=== PATIENT | male | born 1945 | race Caucasian/White ===

== ENCOUNTER 2025-07-30 18:24 | Emergency (ER) | payer OTHER, SELFPAY ==
[2025-07-30] VITALS (14 sets, daily range): BP systolic 161–192; BP diastolic 80–96; PULSE 73–91; RESP 13–23; TEMP 36.8; O2SAT 93–99
--- NOTE | 2025-07-30 18:33 | ED.GENADULT ---
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 He and his friend were out to dinner patient felt that he was having more difficulty finding words, he apparently had some mild seizure-like activity passed out unclear if this was truly a seizure or a syncopal episode. Bystander CPR was started and stopped as soon as medics arrived and clearly found a pulse. As he fell he hit the left side of his face on the edge of the table has some contusions and bleeding to the surgically abnormal left ear skin abrasion to the left cheek. Left facial droop. He is more alert has little recollection of events and the friend who was having dinner with him notes that he seems like he is back to his baseline. At this time patient complains only of some mild central chest pain that is reproducible with palpation is likely secondary to the bystander CPR that was done. He is on his way to drive back home to [place]. Related Data Allergies Allergy/AdvReac Type Severity Reaction Status Date / Time Penicillins Allergy Unknown unknown Verified 07/31/25 05:16 Patient History <Colleen Richards MD - Last Filed: 08/02/25 23:05> Medical History (Updated 07/31/25 @ 08:19 by Em Patel DO) Primary parotid gland malignancy Exam <Colleen Richards MD - Last Filed: 08/02/25 23:05> Initial Vital Signs Initial Vital Signs: Vital Signs Pulse Rate 88 07/30/25 18:29 Respiratory Rate 20 07/30/25 18:29 General: Chronically ill-appearing with significant facial deformity from previous cancer surgeries, slightly postictal maintaining airway HEENT: Left facial droop, difficulty closing his left eye, skin tear over the left cheek, surgical and radiation changes left side of the jaw neck, significantly reconstructed left your with contusion and minor skin tears without overt laceration. He has an approximately 0.5 cm almost a puncture wound to the back of his head bleeding is controlled suturing is not indicated at this time Neck: No tenderness to palpation midline Respiratory: Lungs are clear to auscultation, no wheezing no rales no rhonchi. Full and symmetrical air movement Cardiac: Regular rate and rhythm no murmurs no bruits Chest: No bruises from his bystander CPR but tender along the manubrium, no rib pain Abdomen: Soft, nontender, no abrasions or contusions no rebound or guarding, no flank pain Skin: A thin is quite skin, baseline bruising, skin tear to the left cheek Neurologic: He is moving all extremities, initially had some mild dysarthria, unclear how much of the left facial abnormalities or new. Extremities: No significant trauma. No lower extremity edema Psych: Cognitively clearing and when re-examined is appropriate and interactive with fluent speech <Óscar Marcum MD - Last Filed: 07/31/25 14:36> Initial Vital Signs Initial Vital Signs: Vital Signs Pulse Rate 88 07/30/25 18:29 Respiratory Rate 20 07/30/25 18:29 <Em Patel DO - Last Filed: 07/31/25 11:19> Initial Vital Signs Initial Vital Signs: Vital Signs Pulse Rate 88 07/30/25 18:29 Respiratory Rate 20 07/30/25 18:29 Course <Colleen Richards MD - Last Filed: 08/02/25 23:05> Orders Ordered: Discontinued Medications Hydrocodone Bitart/Acetaminophen (Hydrocodone/Acet 5/325 Tablet) 1 tab PO NOW ONE Stop: 07/31/25 03:52 Last Admin: 07/31/25 04:09 Dose: 1 tab Documented By: Levetiracetam 1,500 mg/ Sodium (Chloride) 115 mls @ 460 mls/hr IV NOW ONE Stop: 07/30/25 23:25 Last Infusion: 07/31/25 00:13 Dose: Infused Documented By: Admin: 07/30/25 23:43 Dose: 460 mls/hr Documented By: ANIKET Sodium Chloride (Normal Saline 0.9%) 1,000 mls @ 500 mls/hr IV BOLUS ONE Stop: 07/31/25 08:07 Last Infusion: 07/31/25 09:06 Dose: Infused Documented By: Admin: 07/31/25 06:51 Dose: 500 mls/hr Documented By: Morphine Sulfate (Morphine 4 Mg/Ml Inj) 4 mg IV NOW ONE Stop: 07/31/25 06:53 Last Admin: 07/31/25 06:56 Dose: 4 mg Documented By: Vital Signs Vital signs: Vital Signs - 8 hr 07/31/25 06:45 07/31/25 07:00 07/31/25 07:21 Temperature Pulse Rate 73 70 Respiratory Rate 25 H 18 Blood Pressure 153/69 H Pulse Oximetry 100 99 Oxygen Delivery Method Room Air 07/31/25 07:21 07/31/25 07:30 07/31/25 08:00 Temperature Pulse Rate 66 66 Respiratory Rate 10 L 10 L Blood Pressure 145/69 H Pulse Oximetry 98 98 Oxygen Delivery Method 07/31/25 08:00 07/31/25 08:30 07/31/25 09:00 Temperature Pulse Rate 62 59 L 68 Respiratory Rate 10 L 12 19 Blood Pressure Pulse Oximetry 99 99 98 Oxygen Delivery Method 07/31/25 09:01 07/31/25 09:01 07/31/25 10:33 Temperature 98.6 F Pulse Rate 69 66 Respiratory Rate 19 19 Blood Pressure 189/93 H 145/78 H Pulse Oximetry 97 98 Oxygen Delivery Method Room Air <Óscar Marcum MD - Last Filed: 07/31/25 14:36> Orders Ordered: Discontinued Medications Hydrocodone Bitart/Acetaminophen (Hydrocodone/Acet 5/325 Tablet) 1 tab PO NOW ONE Stop: 07/31/25 03:52 Last Admin: 07/31/25 04:09 Dose: 1 tab Documented By: Levetiracetam 1,500 mg/ Sodium (Chloride) 115 mls @ 460 mls/hr IV NOW ONE Stop: 07/30/25 23:25 Last Infusion: 07/31/25 00:13 Dose: Infused Documented By: Admin: 07/30/25 23:43 Dose: 460 mls/hr Documented By: ANIKET Sodium Chloride (Normal Saline 0.9%) 1,000 mls @ 500 mls/hr IV BOLUS ONE Stop: 07/31/25 08:07 Last Infusion: 07/31/25 09:06 Dose: Infused Documented By: Admin: 07/31/25 06:51 Dose: 500 mls/hr Documented By: Morphine Sulfate (Morphine 4 Mg/Ml Inj) 4 mg IV NOW ONE Stop: 07/31/25 06:53 Last Admin: 07/31/25 06:56 Dose: 4 mg Documented By: Vital Signs Vital signs: Vital Signs - 8 hr 07/31/25 06:45 07/31/25 07:00 07/31/25 07:21 Temperature Pulse Rate 73 70 Respiratory Rate 25 H 18 Blood Pressure 153/69 H Pulse Oximetry 100 99 Oxygen Delivery Method Room Air 07/31/25 07:21 07/31/25 07:30 07/31/25 08:00 Temperature Pulse Rate 66 66 Respiratory Rate 10 L 10 L Blood Pressure 145/69 H Pulse Oximetry 98 98 Oxygen Delivery Method 07/31/25 08:00 07/31/25 08:30 07/31/25 09:00 Temperature Pulse Rate 62 59 L 68 Respiratory Rate 10 L 12 19 Blood Pressure Pulse Oximetry 99 99 98 Oxygen Delivery Method 07/31/25 09:01 07/31/25 09:01 07/31/25 10:33 Temperature 98.6 F Pulse Rate 69 66 Respiratory Rate 19 19 Blood Pressure 189/93 H 145/78 H Pulse Oximetry 97 98 Oxygen Delivery Method Room Air <Em Patel, - Last Filed: 07/31/25 11:19> Orders Ordered: Discontinued Medications Hydrocodone Bitart/Acetaminophen (Hydrocodone/Acet 5/325 Tablet) 1 tab PO NOW ONE Stop: 07/31/25 03:52 Last Admin: 07/31/25 04:09 Dose: 1 tab Documented By: Levetiracetam 1,500 mg/ Sodium (Chloride) 115 mls @ 460 mls/hr IV NOW ONE Stop: 07/30/25 23:25 Last Infusion: 07/31/25 00:13 Dose: Infused Documented By: Admin: 07/30/25 23:43 Dose: 460 mls/hr Documented By: ANIKET Sodium Chloride (Normal Saline 0.9%) 1,000 mls @ 500 mls/hr IV BOLUS ONE Stop: 07/31/25 08:07 Last Infusion: 07/31/25 09:06 Dose: Infused Documented By: Admin: 07/31/25 06:51 Dose: 500 mls/hr Documented By: Morphine Sulfate (Morphine 4 Mg/Ml Inj) 4 mg IV NOW ONE Stop: 07/31/25 06:53 Last Admin: 07/31/25 06:56 Dose: 4 mg Documented By: AB Vital Signs Vital signs: Vital Signs - 8 hr 07/31/25 06:45 07/31/25 07:00 07/31/25 07:21 Temperature Pulse Rate 73 70 Respiratory Rate 25 H 18 Blood Pressure 153/69 H Pulse Oximetry 100 99 Oxygen Delivery Method Room Air 07/31/25 07:21 07/31/25 07:30 07/31/25 08:00 Temperature Pulse Rate 66 66 Respiratory Rate 10 L 10 L Blood Pressure 145/69 H Pulse Oximetry 98 98 Oxygen Delivery Method 07/31/25 08:00 07/31/25 08:30 07/31/25 09:00 Temperature Pulse Rate 62 59 L 68 Respiratory Rate 10 L 12 19 Blood Pressure Pulse Oximetry 99 99 98 Oxygen Delivery Method 07/31/25 09:01 07/31/25 09:01 07/31/25 10:33 Temperature 98.6 F Pulse Rate 69 66 Respiratory Rate 19 19 Blood Pressure 189/93 H 145/78 H Pulse Oximetry 97 98 Oxygen Delivery Method Room Air Medical Decision Making <Colleen Richards MD - Last Filed: 08/02/25 23:05> Lab Data 07/30/25 18:30 07/30/25 18:30 Labs: Lab Results 07/30/25 07/30/25 07/30/25 Range/Units 18:30 21:00 23:50 WBC 6.8 (4.5-11.0) X10^3/uL RBC 3.78 L (4.5-5.9) X10^6/uL Hgb 11.3 L (13.5-17.5) g/dL Hct 34.0 L (41-53) % MCV 89.9 (80-100) fL MCH 29.9 (26-34) PG MCHC 33.3 (30-36) % RDW 14.6 (11.6-14.8) % Plt Count 332 (150-400) X10^3/uL Neut % (Auto) 52.6 (50-75) % Lymph % (Auto) 29.6 (25-40) % George % (Auto) 14.7 H (3-14) % Eos % (Auto) 2.0 (2-4) % Baso % (Auto) 1.1 (0-2) % Neut # (Auto) 3600 (4276-0134) /uL Lymph # (Auto) 2000 (5661-6220) /uL George # (Auto) 1000 H (0-900) /uL Eos # (Auto) 100 (0-450) /uL Baso # (Auto) 100 (0-100) /uL Sodium 140 (137-145) mmol/L Potassium 4.6 (3.4-5.1) mmol/L Chloride 104 (98-107) mmol/L Carbon Dioxide 16 L (22-32) mmol/L BUN 27 H (9-20) mg/dL Creatinine 1.55 H (0.66-1.25) mg/dL Estimated GFR 46 L (>60) mL/min BUN/Creatinine Ratio 17.4 (6-22) Glucose 140 H (70-99) mg/dL Lactate 6.7 H* 0.9 (0.7-2.1) mmol/L Calcium 9.3 (8.4-10.2) mg/dL Total Bilirubin 1.0 (0.2-1.3) mg/dL AST 49 (17-59) IU/L ALT 24 (<50) IU/L Alkaline Phosphatase 79 (38-126) U/L Troponin I < 0.012 (0.01-0.034) ng/mL NT-Pro-B Natriuret Pep 1950 H (<450) pg/mL Total Protein 9.2 H (6.3-8.2) g/dL Albumin 4.8 (3.5-5.0) g/dL Globulin 4.4 H (1.7-4.1) g/dL Albumin/Globulin Ratio 1.1 (1.0-2.8) Procalcitonin 0.071 (<0.5) ng/mL Urine Color Yellow Urine Appearance Clear Urine pH 6.0 (4.5-8.0) Ur Specific [place] 1.010 (1.000-1.035) Urine Protein 1+ H (Negative) Urine Glucose (UA) Negative (Negative) g/dL Urine Ketones Negative (NEGATIVE) Urine Occult Blood Negative (Negative) Urine Nitrate Negative (Negative) Urine Bilirubin Negative (NEGATIVE) Urine Urobilinogen 0.2 (0.2) E.U./dL Ur Leukocyte Esterase Negative (NEGATIVE) Urine RBC None seen (0-5/HPF) Urine WBC None seen (0-5/HPF) Ur Squamous Epith Cells None seen (0-5/HPF) Urine Bacteria None seen (None) Ur Culture Indicated? Cult not indicated Vol Urine Centrifuged 10ml (spun) Ethyl Alcohol < 10 (<10) mg/dL 07/31/25 07/31/25 Range/Units 02:10 05:12 WBC (4.5-11.0) X10^3/uL RBC (4.5-5.9) X10^6/uL Hgb (13.5-17.5) g/dL Hct (41-53) % MCV (80-100) fL MCH (26-34) PG MCHC (30-36) % RDW (11.6-14.8) % Plt Count (150-400) X10^3/uL Neut % (Auto) (50-75) % Lymph % (Auto) (25-40) % George % (Auto) (3-14) % Eos % (Auto) (2-4) % Baso % (Auto) (0-2) % Neut # (Auto) (9653-2198) /uL Lymph # (Auto) (3308-4244) /uL George # (Auto) (0-900) /uL Eos # (Auto) (0-450) /uL Baso # (Auto) (0-100) /uL Sodium (137-145) mmol/L Potassium (3.4-5.1) mmol/L Chloride (98-107) mmol/L Carbon Dioxide (22-32) mmol/L BUN (9-20) mg/dL Creatinine (0.66-1.25) mg/dL Estimated GFR (>60) mL/min BUN/Creatinine Ratio (6-22) Glucose (70-99) mg/dL Lactate (0.7-2.1) mmol/L Calcium (8.4-10.2) mg/dL Total Bilirubin (0.2-1.3) mg/dL AST (17-59) IU/L ALT (<50) IU/L Alkaline Phosphatase (38-126) U/L Troponin I 0.046 H 0.045 H (0.01-0.034) ng/mL NT-Pro-B Natriuret Pep (<450) pg/mL Total Protein (6.3-8.2) g/dL Albumin (3.5-5.0) g/dL Globulin (1.7-4.1) g/dL Albumin/Globulin Ratio (1.0-2.8) Procalcitonin (<0.5) ng/mL Urine Color Urine Appearance Urine pH (4.5-8.0) Ur Specific [place] (1.000-1.035) Urine Protein (Negative) Urine Glucose (UA) (Negative) g/dL Urine Ketones (NEGATIVE) Urine Occult Blood (Negative) Urine Nitrate (Negative) Urine Bilirubin (NEGATIVE) Urine Urobilinogen (0.2) E.U./dL Ur Leukocyte Esterase (NEGATIVE) Urine RBC (0-5/HPF) Urine WBC (0-5/HPF) Ur Squamous Epith Cells (0-5/HPF) Urine Bacteria (None) Ur Culture Indicated? 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 No prior history of seizures. Data collected from: patient, friend is able to add some details 2 history once he arrives Social determinants of health that may influence the patients condition: Unknown specifics of his medical history, care is through the [place] and [place] Medical records reviewed: Not available Differential considered: Seizure, syncope, cardiac arrest, stroke Exam documented above, pertinent findings include: Contusion to the back of his head to the left ear, skin tear to the left cheek. Significant deformity in neurologic abnormality to the left side of his face that his friend seems to think is fairly close to his baseline. He was postictal and does seem to be clearing. He is moving all extremities Lab Test results independently reviewed as above. Pertinent findings: CBC is unremarkable Chemistries show creatinine elevated at 1.5. Initial lactic is 6.7 and comes down 2.9. -presumably secondary to seizure BNP is slightly elevated at 1950 Troponin is not elevated Liver studies were unremarkable Alcohol is undetectable Independently reviewed EKG: Sinus rhythm at a rate of 84 no acute ischemic changes Imaging studies independently reviewed: CT scan of the head shows no new findings or head bleed Head and neck CTA shows no significant abnormalities Chest x-ray shows no acute cardiopulmonary abnormality CT scan of the cervical spine shows no new fracture Note is made on the cervical CT scan in the head and neck CTA that there is partially seen left mastoid effusion and ear fluid correlate with symptoms and location of traumatic injury. While this does correlate with his injury it also correlates with his previous surgeries and cancer. The left ear has no obvious canal after reconstructive surgery has been done Treatments: Patient is given 1500 mg of IV Keppra Care is turned over to Dr. Marcum at change of shift. Most likely explanation is this 71-year-old gentleman had a new onset seizure with syncope hit the left side of his head most of the physical changes are predating this seizure. Some minor congestive heart failure no evidence of infection. He is loaded with Keppra. His plan was to continue to drive home to [place]. Clearly needs further observation question of disposition and definitive treatment remain open <Óscar Marcum MD - Last Filed: 07/31/25 14:36> Lab Data Labs: Lab Results 07/30/25 07/30/25 07/30/25 Range/Units 18:30 21:00 23:50 WBC 6.8 (4.5-11.0) X10^3/uL RBC 3.78 L (4.5-5.9) X10^6/uL Hgb 11.3 L (13.5-17.5) g/dL Hct 34.0 L (41-53) % MCV 89.9 (80-100) fL MCH 29.9 (26-34) PG MCHC 33.3 (30-36) % RDW 14.6 (11.6-14.8) % Plt Count 332 (150-400) X10^3/uL Neut % (Auto) 52.6 (50-75) % Lymph % (Auto) 29.6 (25-40) % George % (Auto) 14.7 H (3-14) % Eos % (Auto) 2.0 (2-4) % Baso % (Auto) 1.1 (0-2) % Neut # (Auto) 3600 (7656-6561) /uL Lymph # (Auto) 2000 (4326-9759) /uL George # (Auto) 1000 H (0-900) /uL Eos # (Auto) 100 (0-450) /uL Baso # (Auto) 100 (0-100) /uL Sodium 140 (137-145) mmol/L Potassium 4.6 (3.4-5.1) mmol/L Chloride 104 (98-107) mmol/L Carbon Dioxide 16 L (22-32) mmol/L BUN 27 H (9-20) mg/dL Creatinine 1.55 H (0.66-1.25) mg/dL Estimated GFR 46 L (>60) mL/min BUN/Creatinine Ratio 17.4 (6-22) Glucose 140 H (70-99) mg/dL Lactate 6.7 H* 0.9 (0.7-2.1) mmol/L Calcium 9.3 (8.4-10.2) mg/dL Total Bilirubin 1.0 (0.2-1.3) mg/dL AST 49 (17-59) IU/L ALT 24 (<50) IU/L Alkaline Phosphatase 79 (38-126) U/L Troponin I < 0.012 (0.01-0.034) ng/mL NT-Pro-B Natriuret Pep 1950 H (<450) pg/mL Total Protein 9.2 H (6.3-8.2) g/dL Albumin 4.8 (3.5-5.0) g/dL Globulin 4.4 H (1.7-4.1) g/dL Albumin/Globulin Ratio 1.1 (1.0-2.8) Procalcitonin 0.071 (<0.5) ng/mL Urine Color Yellow Urine Appearance Clear Urine pH 6.0 (4.5-8.0) Ur Specific [place] 1.010 (1.000-1.035) Urine Protein 1+ H (Negative) Urine Glucose (UA) Negative (Negative) g/dL Urine Ketones Negative (NEGATIVE) Urine Occult Blood Negative (Negative) Urine Nitrate Negative (Negative) Urine Bilirubin Negative (NEGATIVE) Urine Urobilinogen 0.2 (0.2) E.U./dL Ur Leukocyte Esterase Negative (NEGATIVE) Urine RBC None seen (0-5/HPF) Urine WBC None seen (0-5/HPF) Ur Squamous Epith Cells None seen (0-5/HPF) Urine Bacteria None seen (None) Ur Culture Indicated? Cult not indicated Vol Urine Centrifuged 10ml (spun) Ethyl Alcohol < 10 (<10) mg/dL 07/31/25 07/31/25 Range/Units 02:10 05:12 WBC (4.5-11.0) X10^3/uL RBC (4.5-5.9) X10^6/uL Hgb (13.5-17.5) g/dL Hct (41-53) % MCV (80-100) fL MCH (26-34) PG MCHC (30-36) % RDW (11.6-14.8) % Plt Count (150-400) X10^3/uL Neut % (Auto) (50-75) % Lymph % (Auto) (25-40) % George % (Auto) (3-14) % Eos % (Auto) (2-4) % Baso % (Auto) (0-2) % Neut # (Auto) (9647-2871) /uL Lymph # (Auto) (0868-9129) /uL George # (Auto) (0-900) /uL Eos # (Auto) (0-450) /uL Baso # (Auto) (0-100) /uL Sodium (137-145) mmol/L Potassium (3.4-5.1) mmol/L Chloride (98-107) mmol/L Carbon Dioxide (22-32) mmol/L BUN (9-20) mg/dL Creatinine (0.66-1.25) mg/dL Estimated GFR (>60) mL/min BUN/Creatinine Ratio (6-22) Glucose (70-99) mg/dL Lactate (0.7-2.1) mmol/L Calcium (8.4-10.2) mg/dL Total Bilirubin (0.2-1.3) mg/dL AST (17-59) IU/L ALT (<50) IU/L Alkaline Phosphatase (38-126) U/L Troponin I 0.046 H 0.045 H (0.01-0.034) ng/mL NT-Pro-B Natriuret Pep (<450) pg/mL Total Protein (6.3-8.2) g/dL Albumin (3.5-5.0) g/dL Globulin (1.7-4.1) g/dL Albumin/Globulin Ratio (1.0-2.8) Procalcitonin (<0.5) ng/mL Urine Color Urine Appearance Urine pH (4.5-8.0) Ur Specific [place] (1.000-1.035) Urine Protein (Negative) Urine Glucose (UA) (Negative) g/dL Urine Ketones (NEGATIVE) Urine Occult Blood (Negative) Urine Nitrate (Negative) Urine Bilirubin (NEGATIVE) Urine Urobilinogen (0.2) E.U./dL Ur Leukocyte Esterase (NEGATIVE) Urine RBC (0-5/HPF) Urine WBC (0-5/HPF) Ur Squamous Epith Cells (0-5/HPF) Urine Bacteria (None) Ur Culture Indicated? Vol Urine Centrifuged Ethyl Alcohol (<10) mg/dL Imaging Data Chest x-ray: Radiologist's Impression: [address] [address] XRay Report Signed Patient: Sancho Haney MR#: [id number] : 1945 Acct:[id number] Age/Sex: 79 / M Date of Service: 07/30/25 Loc: ED Accession Number: [id number] Procedure: XR chest 1V Ordering Provider: Colleen Richards MD PROCEDURE: XR CHEST 1V INDICATIONS: syncope TECHNIQUE: One view of the chest was acquired. COMPARISON: None. FINDINGS: Surgical changes and devices: None. Lungs and pleura: Horizontal opacity at the left lung base is most likely scarring or atelectasis. No pleural effusions or pneumothorax. Mediastinum: Mediastinal contours appear normal. Heart size is normal. Bones and chest wall: No suspicious bony lesions. Overlying soft tissues appear unremarkable. IMPRESSION: No acute cardiopulmonary abnormality is seen. Approved by: Juan Francisco Ascencio M.D. on 07/30/2025 at 19:25 CT scan - head: Radiologist's Impression: [address] [address] [address] Scan Report Signed Patient: Sancho Haney MR#: [id number] : 1945 Acct:[id number] Age/Sex: 79 / M Date of Service: 07/30/25 Loc: ED Accession Number: [id number] Procedure: CT head/brain wo con Ordering Provider: Colleen Richards MD PROCEDURE: CT HEAD/BRAIN WO CON INDICATIONS: fall, hit head TECHNIQUE: Noncontrast 4.5 mm thick angled axial sections acquired from the foramen magnum to the vertex, with coronal and sagittal reformats. For radiation dose reduction, the following was used: automated exposure control, adjustment of mA and/or kV according to patient size. COMPARISON: None. FINDINGS: Image quality: Diagnostic CSF spaces: Basal cisterns are patent. Lateral ventricles are symmetric. Volume: Vascular calcifications. Periventricular white matter disease is commonly seen with chronic microangiopathy. Volume loss is present. These findings are moderate Brain: No intracranial hemorrhage. Campbell-white differentiation is grossly maintained. Craniofacial structures: No significant paranasal sinus opacity. Left mastoid effusion and middle year effusion are seen. Artifact obscures the left globe. IMPRESSION: No acute intracranial hemorrhage. Dictated by: Cesar Martins M.D. on 07/30/2025 at 19:57 Approved by: Cesar Martins M.D. on 07/30/2025 at 19:59 CT - cervical spine: Radiologist's Impression: [place] [address] CT Scan Report Signed Patient: Sancho Haney MR#: [id number] : 1945 Acct:[id number] Age/Sex: 79 / M Date of Service: 07/30/25 Loc: ED Accession Number: [id number] Procedure: CT cervical spine wo con Ordering Provider: Colleen Richards MD PROCEDURE: CT CERVICAL SPINE WO CON INDICATIONS: fall TECHNIQUE: Noncontrast 3 mm thick sections acquired from the skull base to the T4 level. Sagittal and coronal reformats were then constructed. For radiation dose reduction, the following was used: automated exposure control, adjustment of mA and/or kV according to patient size. COMPARISON: None. FINDINGS: Image quality: Diagnostic Bones: Moderate to severe cervical spondylosis. Multilevel trace anterolisthesis, most notable at C7-T1, likely degenerative. Vertebral body heights are well maintained. No traumatic subluxation is identified. Soft tissues: Partially seen left mastoid effusion and left middle ear fluid. No pathologic prevertebral soft tissue swelling. Left neck postsurgical changes. Paranasal sinus mucosal thickening and mucous cysts also seen IMPRESSION: Background cervical degenerative changes and probable degenerative spondylolisthesis ease. No acute displaced fracture or traumatic subluxation. If there is high concern for further derangement, consider MRI evaluation. Partially seen left mastoid effusion and ear fluid. Correlate with any symptoms and location of traumatic injury. Consider dedicated imaging if necessary. Dictated by: Cesar Martins M.D. on 07/30/2025 at 19:59 Approved by: Cesar Martins M.D. on 07/30/2025 at 20:02 CTA - brain/neck: Radiologist's Impression: [address] [address] [address] Scan Report Signed Patient: Sancho Haney MR#: [id number] : 1945 Acct:[id number] Age/Sex: 79 / M Date of Service: 07/30/25 Loc: ED Accession Number: [id number] Procedure: CT angio head and neck Ordering Provider: Colleen Richards MD PROCEDURE: CT ANGIO HEAD AND NECK INDICATIONS: possible stroke TECHNIQUE: After the administration of intravenous contrast, 1 mm thick sections acquired from the aortic arch through the [place]. 3-dimensional kpefdqu-wuzqbcjwu-ahxurjiqqi (MIP) and/or volume rendering reformats were acquired of the central intracranial vasculature and neck separately. For radiation dose reduction, the following was used: automated exposure control, adjustment of mA and/or kV according to patient size. COMPARISON: None. FINDINGS: Image quality: Overall diagnostic, but evaluation limited by venous collaterals HEAD ANGIOGRAPHY: Anterior circulation: ICAs: [id number] cavernous and supraclinoid calcifications. ACAs: Patent MCAs: Patent AComm: No aneurysm Venous sinuses: Patent Posterior circulation: Dominance: Slightly right dominant Vertebral arteries: Patent Basilar artery: Patent PComms: No aneurysm preschool substitute teacher: Patent NECK ANGIOGRAPHY: Aortic arch and subclavian arteries: Mild calcifications CCAs: Patent ICA origins (by NASCET criteria): No hemodynamically significant narrowing. ICAs: Patent ECAs: Origins are patent. Vertebral arteries: Mild vertebral origin calcifications. Soft tissues: Diffuse venous collaterals filled with contrast throughout the neck, which obscures partially obscures evaluation. No enlarged lymph nodes by size criteria definitely seen. Left neck postsurgical changes. Lung apices: No apical pneumothorax. Bones: There are degenerative osseous changes. Left mastoid effusion and fluid around the year. IMPRESSION: No large vessel occlusion or high-grade stenosis. Consider MRI if there is high concern for infarction. Left ear and mastoid fluid. Left neck postsurgical changes. Correlate with clinical history and any focal symptoms. Any quantitative measurements of stenosis were performed using NASCET criteria. Dictated by: Cesar Martins M.D. on 07/30/2025 at 20:02 Approved by: Cesar Martins M.D. 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 No prior history of seizures. Data collected from: patient, friend is able to add some details 2 history once he arrives Social determinants of health that may influence the patients condition: Unknown specifics of his medical history, care is through the [place] and [place] Medical records reviewed: Not available Differential considered: Seizure, syncope, cardiac arrest, stroke Exam documented above, pertinent findings include: Contusion to the back of his head to the left ear, skin tear to the left cheek. Significant deformity in neurologic abnormality to the left side of his face that his friend seems to think is fairly close to his baseline. He was postictal and does seem to be clearing. He is moving all extremities Lab Test results independently reviewed as above. Pertinent findings: CBC is unremarkable Chemistries show creatinine elevated at 1.5. Initial lactic is 6.7 and comes down 2.9. -presumably secondary to seizure BNP is slightly elevated at 1950 Troponin is not elevated Liver studies were unremarkable Alcohol is undetectable Independently reviewed EKG: Sinus rhythm at a rate of 84 no acute ischemic changes Imaging studies independently reviewed: CT scan of the head shows no new findings or head bleed Head and neck CTA shows no significant abnormalities Chest x-ray shows no acute cardiopulmonary abnormality CT scan of the cervical spine shows no new fracture Note is made on the cervical CT scan in the head and neck CTA that there is partially seen left mastoid effusion and ear fluid correlate with symptoms and location of traumatic injury. While this does correlate with his injury it also correlates with his previous surgeries and cancer. The left ear has no obvious canal after reconstructive surgery has been done Treatments: Patient is given 1500 mg of IV Keppra Care is turned over to Dr. Marcum at change of shift. Most likely explanation is this 71-year-old gentleman had a new onset seizure with syncope hit the left side of his head most of the physical changes are predating this seizure. Some minor congestive heart failure no evidence of infection. He is loaded with Keppra. His plan was to continue to drive home to [place]. Clearly needs further observation question of disposition and definitive treatment remain open 07/30/25, Jossue Tineo. Sign-out from Dr. Richards. 79-year-old male with history of parotid cancer with remote facial reconstruction, no history of seizures, had witnessed syncopal episode after change in position sitting to standing, bystander CPR by nonmedical personnel, unclear if any actual pulse was checked, confused after the event then improved mental status, possibly back to baseline. CT head negative here, CT Csp no fractures, CT angiogram head and neck vessels without narrowing/thrombosis. Initial labs showed elevated lactate 6.7, subsequent lactate 0.9 normalized, consistent with recent seizure. IV Keppra 1500mg loaded. EKG and troponin negative. Interval repeat troponin pending. 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 Await repeat troponin results. Assumed care. Repeat troponin <0.012 (unmeasurable) to 0.046 (indeterminate mid-range). Left anterior chest wall discomfort on examination. Oral hydrocodone/APAP. CTA Chest, CT Abd/Pelvis with IV contrast. Will further trend troponin, patient expressed agreement. Having more left anterior chest pain, reproducible on exam, not responsive to oral hydrocodone. IV morphine dose. We will repeat EKG. EKG shows sinus bradycardia with rate 58, no obvious ST segment elevation or depression changes. Normal voltage. Troponin 0.045 third result, not rising. CTA/CT reports pending. 0700, CTA chest and CT abdomen/pelvis studies pending. Signed out to oncoming ED shift physician Dr. Patel. <Em Patel, DO - Last Filed: 07/31/25 11:19> Lab Data Labs: Lab Results 07/30/25 07/30/25 07/30/25 Range/Units 18:30 21:00 23:50 WBC 6.8 (4.5-11.0) X10^3/uL RBC 3.78 L (4.5-5.9) X10^6/uL Hgb 11.3 L (13.5-17.5) g/dL Hct 34.0 L (41-53) % MCV 89.9 (80-100) fL MCH 29.9 (26-34) PG MCHC 33.3 (30-36) % RDW 14.6 (11.6-14.8) % Plt Count 332 (150-400) X10^3/uL Neut % (Auto) 52.6 (50-75) % Lymph % (Auto) 29.6 (25-40) % George % (Auto) 14.7 H (3-14) % Eos % (Auto) 2.0 (2-4) % Baso % (Auto) 1.1 (0-2) % Neut # (Auto) 3600 (3847-2401) /uL Lymph # (Auto) 2000 (5619-2405) /uL George # (Auto) 1000 H (0-900) /uL Eos # (Auto) 100 (0-450) /uL Baso # (Auto) 100 (0-100) /uL Sodium 140 (137-145) mmol/L Potassium 4.6 (3.4-5.1) mmol/L Chloride 104 (98-107) mmol/L Carbon Dioxide 16 L (22-32) mmol/L BUN 27 H (9-20) mg/dL Creatinine 1.55 H (0.66-1.25) mg/dL Estimated GFR 46 L (>60) mL/min BUN/Creatinine Ratio 17.4 (6-22) Glucose 140 H (70-99) mg/dL Lactate 6.7 H* 0.9 (0.7-2.1) mmol/L Calcium 9.3 (8.4-10.2) mg/dL Total Bilirubin 1.0 (0.2-1.3) mg/dL AST 49 (17-59) IU/L ALT 24 (<50) IU/L Alkaline Phosphatase 79 (38-126) U/L Troponin I < 0.012 (0.01-0.034) ng/mL NT-Pro-B Natriuret Pep 1950 H (<450) pg/mL Total Protein 9.2 H (6.3-8.2) g/dL Albumin 4.8 (3.5-5.0) g/dL Globulin 4.4 H (1.7-4.1) g/dL Albumin/Globulin Ratio 1.1 (1.0-2.8) Procalcitonin 0.071 (<0.5) ng/mL Urine Color Yellow Urine Appearance Clear Urine pH 6.0 (4.5-8.0) Ur Specific [place] 1.010 (1.000-1.035) Urine Protein 1+ H (Negative) Urine Glucose (UA) Negative (Negative) g/dL Urine Ketones Negative (NEGATIVE) Urine Occult Blood Negative (Negative) Urine Nitrate Negative (Negative) Urine Bilirubin Negative (NEGATIVE) Urine Urobilinogen 0.2 (0.2) E.U./dL Ur Leukocyte Esterase Negative (NEGATIVE) Urine RBC None seen (0-5/HPF) Urine WBC None seen (0-5/HPF) Ur Squamous Epith Cells None seen (0-5/HPF) Urine Bacteria None seen (None) Ur Culture Indicated? Cult not indicated Vol Urine Centrifuged 10ml (spun) Ethyl Alcohol < 10 (<10) mg/dL 07/31/25 07/31/25 Range/Units 02:10 05:12 WBC (4.5-11.0) X10^3/uL RBC (4.5-5.9) X10^6/uL Hgb (13.5-17.5) g/dL Hct (41-53) % MCV (80-100) fL MCH (26-34) PG MCHC (30-36) % RDW (11.6-14.8) % Plt Count (150-400) X10^3/uL Neut % (Auto) (50-75) % Lymph % (Auto) (25-40) % George % (Auto) (3-14) % Eos % (Auto) (2-4) % Baso % (Auto) (0-2) % Neut # (Auto) (4986-2363) /uL Lymph # (Auto) (4587-6930) /uL George # (Auto) (0-900) /uL Eos # (Auto) (0-450) /uL Baso # (Auto) (0-100) /uL Sodium (137-145) mmol/L Potassium (3.4-5.1) mmol/L Chloride (98-107) mmol/L Carbon Dioxide (22-32) mmol/L BUN (9-20) mg/dL Creatinine (0.66-1.25) mg/dL Estimated GFR (>60) mL/min BUN/Creatinine Ratio (6-22) Glucose (70-99) mg/dL Lactate (0.7-2.1) mmol/L Calcium (8.4-10.2) mg/dL Total Bilirubin (0.2-1.3) mg/dL AST (17-59) IU/L ALT (<50) IU/L Alkaline Phosphatase (38-126) U/L Troponin I 0.046 H 0.045 H (0.01-0.034) ng/mL NT-Pro-B Natriuret Pep (<450) pg/mL Total Protein (6.3-8.2) g/dL Albumin (3.5-5.0) g/dL Globulin (1.7-4.1) g/dL Albumin/Globulin Ratio (1.0-2.8) Procalcitonin (<0.5) ng/mL Urine Color Urine Appearance Urine pH (4.5-8.0) Ur Specific [place] (1.000-1.035) Urine Protein (Negative) Urine Glucose (UA) (Negative) g/dL Urine Ketones (NEGATIVE) Urine Occult Blood (Negative) Urine Nitrate (Negative) Urine Bilirubin (NEGATIVE) Urine Urobilinogen (0.2) E.U./dL Ur Leukocyte Esterase (NEGATIVE) Urine RBC (0-5/HPF) Urine WBC (0-5/HPF) Ur Squamous Epith Cells (0-5/HPF) Urine Bacteria (None) Ur Culture Indicated? 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 No prior history of seizures. Data collected from: patient, friend is able to add some details 2 history once he arrives Social determinants of health that may influence the patients condition: Unknown specifics of his medical history, care is through the [place] and [place] Medical records reviewed: Not available Differential considered: Seizure, syncope, cardiac arrest, stroke Exam documented above, pertinent findings include: Contusion to the back of his head to the left ear, skin tear to the left cheek. Significant deformity in neurologic abnormality to the left side of his face that his friend seems to think is fairly close to his baseline. He was postictal and does seem to be clearing. He is moving all extremities Lab Test results independently reviewed as above. Pertinent findings: CBC is unremarkable Chemistries show creatinine elevated at 1.5. Initial lactic is 6.7 and comes down 2.9. -presumably secondary to seizure BNP is slightly elevated at 1950 Troponin is not elevated Liver studies were unremarkable Alcohol is undetectable Independently reviewed EKG: Sinus rhythm at a rate of 84 no acute ischemic changes Imaging studies independently reviewed: CT scan of the head shows no new findings or head bleed Head and neck CTA shows no significant abnormalities Chest x-ray shows no acute cardiopulmonary abnormality CT scan of the cervical spine shows no new fracture Note is made on the cervical CT scan in the head and neck CTA that there is partially seen left mastoid effusion and ear fluid correlate with symptoms and location of traumatic injury. While this does correlate with his injury it also correlates with his previous surgeries and cancer. The left ear has no obvious canal after reconstructive surgery has been done Treatments: Patient is given 1500 mg of IV Keppra Care is turned over to Dr. Marcum at change of shift. Most likely explanation is this 71-year-old gentleman had a new onset seizure with syncope hit the left side of his head most of the physical changes are predating this seizure. Some minor congestive heart failure no evidence of infection. He is loaded with Keppra. His plan was to continue to drive home to [place]. Clearly needs further observation question of disposition and definitive treatment remain open 07/30/25, Jossue Tineo. Sign-out from Dr. Richards. 79-year-old male with history of parotid cancer with remote facial reconstruction, no history of seizures, had witnessed syncopal episode after change in position sitting to standing, bystander CPR by nonmedical personnel, unclear if any actual pulse was checked, confused after the event then improved mental status, possibly back to baseline. CT head negative here, CT Csp no fractures, CT angiogram head and neck vessels without narrowing/thrombosis. Initial labs showed elevated lactate 6.7, subsequent lactate 0.9 normalized, consistent with recent seizure. IV Keppra 1500mg loaded. EKG and troponin negative. Interval repeat troponin pending. 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 Await repeat troponin results. Assumed care. Repeat troponin <0.012 (unmeasurable) to 0.046 (indeterminate mid-range). Left anterior chest wall discomfort on examination. Oral hydrocodone/APAP. CTA Chest, CT Abd/Pelvis with IV contrast. Will further trend troponin, patient expressed agreement. Having more left anterior chest pain, reproducible on exam, not responsive to oral hydrocodone. IV morphine dose. We will repeat EKG. EKG shows sinus bradycardia with rate 58, no obvious ST segment elevation or depression changes. Normal voltage. Troponin 0.045 third result, not rising. CTA/CT reports pending. 07, CTA chest and CT abdomen/pelvis studies pending. [facility] physician Dr. Patel. 07 Dr. Patel patient signed out to me by Dr. Marcum I have seen evaluated patient myself. Patient is on a road trip from [place] he went to [place] in his now in [facility]. It sounds like he has had some complicated social issues. [facility] seems as though he likely had a new onset seizure he had an elevated lactate of 6.7 which quickly came down to undetectable. He had some bystander CPR mild troponin bump but then came down. He had further testing of CT angio chest which did not show any evidence of fracture pulmonary embolism or other. CT abdomen pelvis was also done chose some hydro ureteral nephrosis and distention of bladder but no other findings found. I do think that slight bump in troponin is probably from bystander CPR but is now down trending. No concern for ACS Discussion with patient about no further driving until cleared by Neurology. This will be challenging he has patient real support at this time. Patient had breakfast here in the ED ambulated in the ED in his friend came to pick him Discharge Plan Departure Patient Disposition: Home Clinical Impression: New onset seizure Instructions: DI for Seizure (Not Epilepsy/Seizure Disorder) Activity Restrictions/Additional Instructions: Do NOT DRIVE UNTIL CLEARED BY [facility] You must be seizure free for 6 months before driving *You have been diagnosed with new onset seizure *What to do: At this time no antiseizure medication is indicated. However if you have a recurrent seizure you need to be evaluated *Continue to take medications as directed *Follow up with your primary care provider in 2-3 days or call [phone] *Return to ER if you should have recurrent seizure passing out chest pain shortness of breath or any new, worsening or concerning symptoms Stand Alone Forms: Patient Portal/API
--- NOTE | 2025-07-30 18:52 | DI.CT.S_ITS ---
PROCEDURE: CT HEAD/BRAIN WO CON INDICATIONS: fall, hit head TECHNIQUE: Noncontrast 4.5 mm thick angled axial sections acquired from the foramen magnum to the vertex, with coronal and sagittal reformats. For radiation dose reduction, the following was used: automated exposure control, adjustment of mA and/or kV according to patient size. COMPARISON: None. FINDINGS: Image quality: Diagnostic CSF spaces: Basal cisterns are patent. Lateral ventricles are symmetric. Volume: Vascular calcifications. Periventricular white matter disease is commonly seen with chronic microangiopathy. Volume loss is present. These findings are moderate Brain: No intracranial hemorrhage. Campbell-white differentiation is grossly maintained. Craniofacial structures: No significant paranasal sinus opacity. Left mastoid effusion and middle year effusion are seen. Artifact obscures the left globe. IMPRESSION: No acute intracranial hemorrhage. Dictated by: Cesar Martins M.D. on 07/30/2025 at 19:57 Approved by: Cesar Martins M.D. on 07/30/2025 at 19:59
--- NOTE | 2025-07-30 18:52 | DI.CT.S_ITS ---
PROCEDURE: CT CERVICAL SPINE WO CON INDICATIONS: fall TECHNIQUE: Noncontrast 3 mm thick sections acquired from the skull base to the T4 level. Sagittal and coronal reformats were then constructed. For radiation dose reduction, the following was used: automated exposure control, adjustment of mA and/or kV according to patient size. COMPARISON: None. FINDINGS: Image quality: Diagnostic Bones: Moderate to severe cervical spondylosis. Multilevel trace anterolisthesis, most notable at C7-T1, likely degenerative. Vertebral body heights are well maintained. No traumatic subluxation is identified. Soft tissues: Partially seen left mastoid effusion and left middle ear fluid. No pathologic prevertebral soft tissue swelling. Left neck postsurgical changes. Paranasal sinus mucosal thickening and mucous cysts also seen IMPRESSION: Background cervical degenerative changes and probable degenerative spondylolisthesis ease. No acute displaced fracture or traumatic subluxation. If there is high concern for further derangement, consider MRI evaluation. Partially seen left mastoid effusion and ear fluid. Correlate with any symptoms and location of traumatic injury. Consider dedicated imaging if necessary. Dictated by: Cesar Martins M.D. on 07/30/2025 at 19:59 Approved by: Cesar Martins M.D. on 07/30/2025 at 20:02
--- NOTE | 2025-07-30 18:53 | DI.RAD.S_ITS ---
PROCEDURE: XR CHEST 1V INDICATIONS: syncope TECHNIQUE: One view of the chest was acquired. COMPARISON: None. FINDINGS: Surgical changes and devices: None. Lungs and pleura: Horizontal opacity at the left lung base is most likely scarring or atelectasis. No pleural effusions or pneumothorax. Mediastinum: Mediastinal contours appear normal. Heart size is normal. Bones and chest wall: No suspicious bony lesions. Overlying soft tissues appear unremarkable. IMPRESSION: No acute cardiopulmonary abnormality is seen. Approved by: Juan Francisco Ascencio M.D. on 07/30/2025 at 19:25
--- NOTE | 2025-07-30 18:54 | DI.CT.S_ITS ---
PROCEDURE: CT ANGIO HEAD AND NECK INDICATIONS: possible stroke TECHNIQUE: After the administration of intravenous contrast, 1 mm thick sections acquired from the aortic arch through the [place] of [place]. 3-dimensional jbwzqoq-abyclbpco-sctncehwma (MIP) and/or volume rendering reformats were acquired of the central intracranial vasculature and neck separately. For radiation dose reduction, the following was used: automated exposure control, adjustment of mA and/or kV according to patient size. COMPARISON: None. FINDINGS: Image quality: Overall diagnostic, but evaluation limited by venous collaterals HEAD ANGIOGRAPHY: Anterior circulation: ICAs: Rfof-tg-[id number] cavernous and supraclinoid calcifications. ACAs: Patent MCAs: Patent AComm: No aneurysm Venous sinuses: Patent Posterior circulation: Dominance: Slightly right dominant Vertebral arteries: Patent Basilar artery: Patent PComms: No aneurysm bearing maker: Patent NECK ANGIOGRAPHY: Aortic arch and subclavian arteries: Mild calcifications CCAs: Patent ICA origins (by NASCET criteria): No hemodynamically significant narrowing. ICAs: Patent ECAs: Origins are patent. Vertebral arteries: Mild vertebral origin calcifications. Soft tissues: Diffuse venous collaterals filled with contrast throughout the neck, which obscures partially obscures evaluation. No enlarged lymph nodes by size criteria definitely seen. Left neck postsurgical changes. Lung apices: No apical pneumothorax. Bones: There are degenerative osseous changes. Left mastoid effusion and fluid around the year. IMPRESSION: No large vessel occlusion or high-grade stenosis. Consider MRI if there is high concern for infarction. Left ear and mastoid fluid. Left neck postsurgical changes. Correlate with clinical history and any focal symptoms. Any quantitative measurements of stenosis were performed using NASCET criteria. Dictated by: Cesar Martins M.D. on 07/30/2025 at 20:02 Approved by: Cesar Martins M.D. on 07/30/2025 at 20:07
[2025-07-30 18:59] LABS: Add Manual Diff / Slide Review NO; Hematocrit 34.0 % (41-53); Hemoglobin 11.3 g/dL (13.5-17.5); Lymphocytes Absolute Auto 2000 /uL (1100-4500); Mean Corpuscular HGB Conc 33.3 % (30-36); Mean Corpuscular Hemoglobin 29.9 PG (26-34); Mean Corpuscular Volume 89.9 fL (80-100); Platelet Count 332 X10^3/uL (150-400)
[2025-07-30 19:05] LABS: Alanine Aminotransferase 24 IU/L (<50); Albumin 4.8 g/dL (3.5-5.0); Albumin Globulin Ratio 1.1 (1.0-2.8); Alkaline Phosphatase 79 U/L (38-126); Blood Urea Nitrogen 27 mg/dL (9-20); Calcium 9.3 mg/dL (8.4-10.2); Carbon Dioxide 16 mmol/L (22-32); Chloride 104 mmol/L (98-107); Estimated Glomerular Filt Rate 46 mL/min (>60); Ethanol (ETOH) < 10 mg/dL (<10); Globulin 4.4 g/dL (1.7-4.1); Glucose 140 mg/dL (70-99); HEMOLYSIS < 15 (0-50); Potassium 4.6 mmol/L (3.4-5.1); Sodium 140 mmol/L (137-145); Total Protein 9.2 g/dL (6.3-8.2)
[2025-07-30 19:06] LABS: Lactate (Lactic Acid) 6.7 mmol/L (0.7-2.1)
[2025-07-30 19:16] LABS: NT-proBNP (BNP-Adult 18+) 1950 pg/mL (<450); Troponin I < 0.012 ng/mL (0.01-0.034)
[2025-07-30 19:22] LABS: Procalcitonin 0.071 ng/mL (<0.5)
--- NOTE | 2025-07-30 19:23 | EKG_ITS ---
[address] [address] Test Date: 2025-07-30 Pat Name: Sancho Haney Department: [facility] Room: Gender: Male Chiropractic Assistant: ARLYN : 1945 Requested By: Order Number: [id number] Reading MD: Nicholas Edwards MD Measurements Intervals [place] Rate: 84 P: 57 AL: 182 QRS: 51 QRSD: 92 T: 25 QT: 362 QTc: 427 Interpretive Statements Normal sinus rhythm Electronically Signed On 08-01-2025 14:43:43 PDT by Nicholas Edwards MD
[2025-07-30 20:31] LABS: Reflexed Lactate in 2 Hours Y
[2025-07-30 21:22] LABS: Lactate 2HR (Lactic Acid Rflx) 0.9 mmol/L (0.7-2.1)
[2025-07-31] VITALS (22 sets, daily range): BP systolic 120–189; BP diastolic 57–93; PULSE 54–73; RESP 10–25; TEMP 37; O2SAT 97–100
[2025-07-31 00:10] LABS: Appearance Urine UA CLEAR; Bilirubin Urine UA NEGATIVE (NEGATIVE); Color Urine UA YELLOW; Glucose Urine UA NEGATIVE (Negative); Ketones Urine UA NEGATIVE (NEGATIVE); Leukocyte Esterase Urine UA NEGATIVE (NEGATIVE); Nitrite Urine UA NEGATIVE (Negative); Occult Blood Urine UA NEGATIVE (Negative); Protein Urine UA 1+ (Negative); Specific Gravity Urine UA 1.010 (1.000-1.035); Urobilinogen Urine UA 0.2 E.U./dL (0.2); pH Urine UA 6.0 (4.5-8.0)
[2025-07-31 00:23] LABS: Culture Indicated Urine Cult Not Indicated
[2025-07-31 02:38] LABS: Troponin I 0.046 ng/mL (0.01-0.034)
--- NOTE | 2025-07-31 04:59 | PC.NURSE ---
No seizure activity noted since transfer of care from [facility].
[2025-07-31 05:52] LABS: Troponin I 0.045 ng/mL (0.01-0.034)
--- NOTE | 2025-07-31 06:07 | DI.CT.S_ITS ---
PROCEDURE: CT ANGIO CHEST PE PROTOCOL INDICATIONS: syncope TECHNIQUE: After the administration of intravenous contrast, 2 mm thick sections acquired from the pulmonary apices to the posterior costophrenic angles. MIP reformats of the arterial vasculature were utilized. For radiation dose reduction, the following was used: automated exposure control, adjustment of mA and/or kV according to patient size. COMPARISON: None. FINDINGS: Image quality: Diagnostic. Pulmonary arteries: Pulmonary arteries are normal in size, and demonstrate no intraluminal filling defects to suggest central pulmonary embolism. Lower Neck: No enlarged lymph nodes. Thyroid: No thyroid nodules which require sonographic follow up, per consensus guidelines. Axillae: No enlarged lymph nodes. Chest Wall: Unremarkable. Bones: Unremarkable. Lungs and Pleura: Left lower lobe pulmonary infiltrate and bibasilar atelectasis and or consolidation Heart: Heart size is normal. No pericardial effusion. Thoracic Vessels: No aortic aneurysm. Mediastinum and [place]: No enlarged lymph nodes. Esophagus: No wall thickening. No hiatal hernia. Upper Abdomen: Visualized upper abdomen solid organs and bowel loops appear normal. IMPRESSION: No evidence of pulmonary embolism, aortic dissection or aneurysm. Left lower lobe infiltrate and consolidation consistent with pneumonia. Bibasilar atelectasis and consolidation. Note: This final report is concordant with the preliminary after-hours interpretation provided by [facility] Approved by: Tanvir Starkey M.D. on 07/31/2025 at 8:16
--- NOTE | 2025-07-31 06:08 | DI.CT.S_ITS ---
PROCEDURE: CT ABDOMEN PELVIS W CON INDICATIONS: syncope TECHNIQUE: After the administration of intravenous contrast, axial sections acquired from the lung bases to the pubic symphysis. Coronal and sagittal reformats were performed. For radiation dose reduction, the following was used: automated exposure control, adjustment of mA and/or kV according to patient size. COMPARISON: None. FINDINGS: Image quality: Diagnostic. Lower Chest: Left lower lobe pulmonary infiltrate ABDOMEN: Liver: No solid mass. Gallbladder: No radiopaque gallstones or wall thickening. Biliary ducts: No biliary dilation. Pancreas: No ductal dilation. Spleen: Size is within normal limits. Adrenal Glands: No adrenal nodules. Kidneys and Ureters: Significant prostatic enlargement associated with severe bilateral hydronephrosis and urinary bladder distension. No calculi present. Small renal cysts noted. Stomach and Bowel: Normal colonic caliber, without significant wall thickening. Peritoneum: No abnormal intraperitoneal fluid. No free air. Ventral Wall: No significant ventral hernia. Abdominal Nodes: No retroperitoneal or mesenteric adenopathy by size criteria. Vessels: Aorta and inferior vena cava are normal in size. PELVIS: Pelvic Organs: Unremarkable. Bladder: No bladder wall thickening, accounting for underdistention. Pelvic Nodes: No enlarged lymph nodes. Miscellaneous: No inguinal hernias are seen. Bones: No aggressive osseous abnormality. IMPRESSION: Bladder outlet obstruction. No significant prostate hypertrophy associated with severe bilateral hydronephrosis/hydroureter as well as massive urinary bladder distension. Note: This final report is concordant with the preliminary after-hours interpretation provided by [facility] Approved by: Tanvir Starkey M.D. on 07/31/2025 at 8:19
--- NOTE | 2025-07-31 06:33 | PC.NURSE ---
No seizure or seizure like activity noted since transfer of patient care 07/31/25 @ 2998
[2025-07-31] MEDS: SODIUM CHLORIDE 0.9% 1,000 ML 500 ML IV (06:51)
--- NOTE | 2025-07-31 06:51 | EKG_ITS ---
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
[2025-07-31] MEDS: MORPHINE 4 MG/ML INJ IV (06:56)
--- NOTE | 2025-07-31 10:13 | PC.NURSE ---
Addendum entered by Rhianna Cruz CNA 07/31/25 10:17: Ride is on the way @1017. Original Note: Patients friend Gurpreet was called at [phone] and a voicemail was left at [phone] to see if he is able to give the patient a ride home upon discharge.
--- NOTE | 2025-07-31 10:15 | PC.NURSE ---
PT up ambulating in [place] with walker. JAVED Barriga assisting pt to BR. Back to room.
--- NOTE | 2025-07-31 10:31 | PC.NURSE ---
Gurpreet (friend) called for pt to transport him home.
--- NOTE | 2025-07-31 10:36 | CM.SWNOTE ---
ED GEOGRAPHY PROFESSOR Assessment Note: Pt is a 79yo male, resident of [facility], seen in the ED after a seizure. Patient has a history of parotid CA. Pt lives in a house with his dog, Allison, on [facility]. Pt's Primary Care Provider is in [place] and insurance is [employer] (provided SSN# to admissions to update in chart). Reviewed chart and discussed with multidisciplinary team pt's medical status and initial discharge needs. Per ED Provider, pt is cleared to discharge home and will have to follow up with neurologist and/or Primary Care. GEOGRAPHY PROFESSOR entered room to meet with patient, introduced self and role. Pt endorses being independent at baseline, he drives self, and does not utilize any DME. Patient states at discharge, his friend, Gurpreet can take him back to his vehicle. Pt endorses always having property in [facility] but has been living in [place], [place] for the past ten years to take care of his mother who has . He had established care there but is now in the process of moving back to [facility], [facility] GEOGRAPHY PROFESSOR provided [facility] contact information for pt to notify that he would like to [facility] GEOGRAPHY PROFESSOR provided contact and address information for [facility] [place] and [place] for pt reference. Plan: Pt to discharge home, follow up with [facility]; friend, Gurpreet, to transport him home. MARIANA Moses
== END 2025-07-31 10:37 | disposition home or self-care (01) ==
PROVIDERS: Emergency Medicine; Emergency Provider Emergency Medicine
DX: R56.9 Unspecified convulsions (principal); S09.90XA Unspecified injury of head, initial encounter; I50.9 Heart failure, unspecified
CPT/HCPCS: 36415; 70450; 70496; 70498; 71045; 71275; 72125; 74177; 80053; 80320; 81001; 83605; 83880; 84145; 84484; 85025; 93005; 93010; 96361; 96365; 96375; 99284; J1953; J2272; Q9967